=== PATIENT | female | born 1985 | race Caucasian/White ===

== ENCOUNTER 2018-10-20 20:02 | Emergency (ER) | payer SELFPAY ==
[~2018-10-20] VITALS: Ht 162.6 cm; Wt 76.1 kg
[2018-10-20 20:08] VITALS: BP 134/67; PULSE 76; RESP 18; Ht 162.6 cm; Wt 76.1 kg
== END 2018-10-20 20:20 | disposition left against medical advice (07) ==
LOC: E/R 20:02
DX: Z53.21 Procedure and treatment not carried out due to patient leaving prior to being seen by health care provider (principal)
CPT/HCPCS: 93005